=== PATIENT | female | born 1965 | race Caucasian/White ===

== ENCOUNTER → 2017-06-20 | Outpatient (REF) | payer BC ==
[2017-06-20 20:02] LABS: FERRITIN 230 NG/ML (8-252); IRON (FE) 109 UG/DL (50-170); PERCENT SATURATION 32.1 % (13.2-45.0); RHEUMATOID FACTOR QUANT < 10.0 IU/ML (0-15.0); TOTAL IRON BINDING CAPACITY 340 UG/DL (250-450)
[2017-06-20 20:21] LABS: VITAMIN B12 LEVEL 615 PG/ML (247-911)
[2017-06-22 14:15] LABS: ANTINUCLEAR ANTIBODIES DIRECT Negative (Negative)
== END ==
LOC: M LAB REF 17:13
DX: M25.50 Pain in unspecified joint (principal); D50.9 Iron deficiency anemia, unspecified
CPT/HCPCS: 83550

== ENCOUNTER → 2018-07-23 | Outpatient (REF) | payer BC ==
[2018-07-23 17:49] LABS: PERCENT SATURATION 26.3 % (13.2-45.0)
== END ==
LOC: M LAB REF 16:42
PROVIDERS: ATTEND Internal Medicine
DX: D50.9 Iron deficiency anemia, unspecified (principal)

== ENCOUNTER → 2018-08-07 | Outpatient (REF) | payer BC | LOC: M LAB REF 19:08 | PROVIDERS: ATTEND Podiatrist Foot & Ankle Surgery | DX: D17.39 Benign lipomatous neoplasm of skin and subcutaneous tissue of other sites (principal) ==

== ENCOUNTER → 2020-12-23 | Outpatient (CLI) | payer OTHER ==
--- NOTE | 2020-12-23 12:45 | REP ---
INDICATION: RT KNEE OA W/ PAIN ? MENISCUS TEAR. COMPARISON: None. TECHNIQUE: Axial, coronal, and sagittal imaging planes are utilized. T1, proton density and T2 weighted scans are obtained in the usual fashion with without fat saturation. FINDINGS: There is a large joint effusion. There is a small Arroyo's cyst in the posteromedial popliteal soft tissues. There is a small zone of marrow edema in the anteromedial tibial plateau region. No fracture is apparent. There is mild medial compartment osteoarthritic spurring. There is subtle marrow edema in the subcortical bone of the superior central patella and some superior inferior articular spurring of the patella is noted. These changes are compatible with medial and patellofemoral compartment osteoarthritis. There is increased signal intensity along the course of the anterior cruciate ligament. No discontinuity is seen. Question an ACL strain. Patellar and quadriceps tendons are intact. Posterior cruciate ligament has an intact appearance. There is no evidence of medial or lateral collateral ligament disruption. The lateral meniscus is unremarkable. There is a fairly extensive horizontal tear of the posterior horn of the medial meniscus. No displaced meniscal material is appreciated. There is partial thickness articular cartilage thinning in the medial femoral condyle. At mid meniscal level there is some mild medial meniscal extrusion bowing the medial collateral ligament. IMPRESSION: Large joint effusion and small Arroyo's cyst. Medial and patellofemoral compartment osteoarthritis. Horizontal tear posterior horn and midbody medial meniscus with some medial meniscal extrusion. 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 Question strain of the anterior cruciate ligament. <Electronically signed by Manas Lizarraga > 12/23/20 [id number]
== END ==
LOC: M PLAIMG 10:39
PROVIDERS: ATTEND Orthopaedic Surgery
DX: M17.11 Unilateral primary osteoarthritis, right knee (principal)

== ENCOUNTER → 2021-12-07 | Outpatient (REF) | payer OTHER ==
[2021-12-07 13:25] LABS: C REACTIVE PROTEIN QUANTITATIV < 0.30 MG/DL (0.00-0.30); IRON (FE) 152 UG/DL (50-170); PERCENT SATURATION 43.8 % (13.2-45.0); TOTAL IRON BINDING CAPACITY 347 UG/DL (250-450)
== END ==
LOC: M LAB REF 12:13
PROVIDERS: ATTEND Internal Medicine
DX: D50.9 Iron deficiency anemia, unspecified (principal); R60.9 Edema, unspecified; R50.9 Fever, unspecified; K62.89 Other specified diseases of anus and rectum; Z11.59 Encounter for screening for other viral diseases

== ENCOUNTER → 2021-12-08 | Outpatient (CLI) | payer OTHER ==
[~2021-12-08] MED LIST: ISOVUE-370 76% 100ML VIAL As Ordered ONE
== END ==
LOC: M RAD 07:19
PROVIDERS: ATTEND Internal Medicine
DX: R06.02 Shortness of breath (principal)
CPT/HCPCS: 71275; Q9967

== ENCOUNTER → 2022-01-03 | Outpatient (CLI) | payer OTHER | LOC: M RAD 07:32 | PROVIDERS: ATTEND Physician Assistant | DX: S83.212A Bucket-handle tear of medial meniscus, current injury, left knee, initial encounter (principal); M25.762 Osteophyte, left knee; M22.42 Chondromalacia patellae, left knee ==

== ENCOUNTER → 2024-05-17 | Outpatient (REF) | payer OTHER | LOC: M LAB REF 16:22 | PROVIDERS: ATTEND Internal Medicine | DX: Z98.84 Bariatric surgery status (principal); D50.9 Iron deficiency anemia, unspecified ==